=== PATIENT | male | born 1945 | race Two or more races ===

== ENCOUNTER 2018-06-18 12:14 | Emergency (ER) | payer OTHER ==
[~2018-06-18] VITALS: Ht 170.2 cm; Wt 78.5 kg
[2018-06-18] MEDS ORDERED: TAMS0.4C PO (12:27)
[2018-06-18] MEDS ORDERED: SYNTHROID75 MCG PO (12:27)
[2018-06-18] MEDS ORDERED: LIPITOR20 MG PO (12:27)
[2018-06-18] MEDS ORDERED: TOPROL XL25 M1 PO (12:27)
== END 2018-06-18 17:59 | disposition home or self-care (01) ==
LOC: ER 12:14
DX: R10.813 Right lower quadrant abdominal tenderness (principal)

== ENCOUNTER 2020-09-23 07:38 | Outpatient (CLI) | payer OTHER ==
[~2020-09-23 07:38] MED LIST: LIPITOR20 MG PO; SYNTHROID75 MCG PO; TAMS0.4C PO; TOPROL XL25 M1 PO
== END 2020-09-23 07:46 | disposition home or self-care (01) ==
LOC: SONOGRAMA 07:38
PROVIDERS: ATTEND Internal Medicine Gastroenterology
DX: R16.0 Hepatomegaly, not elsewhere classified (principal); R10.84 Generalized abdominal pain

== ENCOUNTER 2022-05-25 07:45 | Outpatient (CLI) | payer OTHER | END 2022-05-25 07:52 | disposition home or self-care (01) | LOC: TOM 07:45 | PROVIDERS: ATTEND Internal Medicine Cardiovascular Disease | DX: I11.9 Hypertensive heart disease without heart failure (principal); I71.20 Thoracic aortic aneurysm, without rupture, unspecified | CPT/HCPCS: 71275; Q9965 ==

== ENCOUNTER 2022-10-09 07:34 | Outpatient (CLI) | payer OTHER | END 2022-10-09 07:39 | disposition home or self-care (01) | LOC: NUCLEAR 07:34 | PROVIDERS: ATTEND Internal Medicine Cardiovascular Disease | DX: I25.10 Atherosclerotic heart disease of native coronary artery without angina pectoris (principal) | CPT/HCPCS: 78452; 93017; A9500 ==

== ENCOUNTER 2023-02-09 09:04 | Outpatient (CLI) | payer OTHER | END 2023-02-09 09:23 | disposition home or self-care (01) | LOC: RAD 09:04 | PROVIDERS: ATTEND Family Medicine | DX: I10 Essential (primary) hypertension (principal); R05.3 Chronic cough; M54.2 Cervicalgia ==

== ENCOUNTER 2023-08-19 10:50 | Outpatient (CLI) | payer OTHER | END 2023-08-19 10:57 | disposition home or self-care (01) | LOC: MRI 10:50 | PROVIDERS: ATTEND Family Medicine | DX: M50.10 Cervical disc disorder with radiculopathy, unspecified cervical region (principal) | CPT/HCPCS: 72141 ==

== ENCOUNTER 2024-11-16 12:31 | Outpatient (CLI) | payer OTHER | END 2024-11-16 12:39 | disposition home or self-care (01) | LOC: RAD 12:31 | PROVIDERS: ATTEND Family Medicine | DX: R05.3 Chronic cough (principal) ==